=== PATIENT | female | born 1965 | race Caucasian/White ===

== ENCOUNTER 2019-11-01 20:06 | Emergency (ER) | payer OTHER ==
[~2019-11-01] VITALS: Ht 162.6 cm; Wt 108.9 kg
[2019-11-01] MEDS ORDERED: CETIRIZINE HCL10 MG (20:50)
[2019-11-01] MEDS ORDERED: OMEPRAZOLE20 MG (20:50)
== END 2019-11-02 01:08 | disposition home or self-care (01) ==
LOC: ED 20:06
DX: R10.12 Left upper quadrant pain (principal); F32.9 Major depressive disorder, single episode, unspecified; Z88.5 Allergy status to narcotic agent; Z88.8 Allergy status to other drugs, medicaments and biological substances; Z79.899 Other long term (current) drug therapy
CPT/HCPCS: 71260; 74176; 80053; 81001; 83690; 85025; 85379; 99284-25; J1885; J2405; Q9967

== ENCOUNTER 2020-06-04 23:51 | Emergency (ER) | payer OTHER ==
[~2020-06-04] VITALS: Ht 162.6 cm; Wt 109.8 kg
[~2020-06-04 23:51] MED LIST: CETIRIZINE HCL10 MG; OMEPRAZOLE20 MG
[2020-06-05] MEDS ORDERED: HYDROCODON-ACE1 EA10 PO (00:11)
[2020-06-05] MEDS ORDERED: BUTALBITAL-ASA1 EACH PO (00:26)
== END 2020-06-05 01:21 | disposition home or self-care (01) ==
LOC: ED 23:51
DX: G43.909 Migraine, unspecified, not intractable, without status migrainosus (principal); Z88.5 Allergy status to narcotic agent; Z88.8 Allergy status to other drugs, medicaments and biological substances; Z79.899 Other long term (current) drug therapy
CPT/HCPCS: 96374; 96375; 99283-25; J1200; J1885; J2765; J7030

== ENCOUNTER 2022-07-28 12:52 | Emergency (ER) | payer OTHER ==
[~2022-07-28] VITALS: Ht 162.6 cm; Wt 107.0 kg
[~2022-07-28 12:52] MED LIST changes: +BUTALBITAL-ASA1 EACH PO; +HYDROCODON-ACE1 EA10 PO
[2022-07-28] MEDS ORDERED: PREDNISONE20 MG PO (18:39)
--- NOTE | 2022-07-29 21:33 | EKG ---
[facility] [address] [place] [id number] Signed Poor data quality, interpretation may be adversely affected Accelerated Junctional rhythm Nonspecific ST and T wave abnormality Abnormal ECG No previous ECGs available Confirmed by Jordon Barnhart MD () on 07/29/2022 9:33:15 PM Electronically Signed By: JORDON BARNHART MD 07/29/222132 PATIENT NAME: EFE CAMEJO Electrocardiogram DATE OF : 69 PHYSICIAN: JORDON BARNHART MD REPORT #: [id number] REPORT IS CONFIDENTIAL AND NOT TO BE RELEASED WITHOUT AUTHORIZATION
== END 2022-07-28 18:56 | disposition home or self-care (01) ==
LOC: ED 12:52
DX: J45.901 Unspecified asthma with (acute) exacerbation (principal); G43.909 Migraine, unspecified, not intractable, without status migrainosus; Z88.8 Allergy status to other drugs, medicaments and biological substances; Z79.899 Other long term (current) drug therapy
CPT/HCPCS: 71045; 93005; 93010; 94640; 99285-25; J1100